=== PATIENT | female | born 1955 | race Caucasian/White ===

== ENCOUNTER → 2016-08-11 | Outpatient (CLI) | payer BC | END | disposition home or self-care (01) | LOC: C.LABSPEC 16:56 | PROVIDERS: ATTEND Nurse Practitioner Family | DX: R31.0 Gross hematuria (principal) ==

== ENCOUNTER → 2016-09-22 | Outpatient (CLI) | payer BC ==
--- NOTE | 2016-09-23 08:21 | MAMMOGRAPHY REPORT ---
BILATERAL DIGITAL SCREENING MAMMOGRAM TOMOSYNTHESIS WITH CAD: 09/22/2016 CLINICAL HISTORY: Routine screening. Patient has no complaints. TECHNIQUE: Breast tomosynthesis in addition to standard 2D mammography was performed. Current study was also evaluated with a Computer Aided Detection (CAD) system. COMPARISON: Comparison is made to exams dated: 09/19/2015 mammogram, 06/05/2014 mammogram, 06/02/2013 ma mmogram, 06/01/2012 mammogram, 05/25/2011 mammogram, and 05/20/2010 mammogram - [facility]. BREAST COMPOSITION: The tissue of both breasts is heterogeneously dense, which may obscure small mas ses. FINDINGS: There is a 6 mm nodular asymmetry in the lateral posterior right breast, best appreciated on the CC view and corresponding tomosynthesis images. Although this could represent normal overlapp ing tissue, additional spot compression tomosynthesis views, possibly including the exaggerated later al position, and possible ultrasound is recommended. No other new suspicious mass, architectural distortion or cluster of microcalcifications is seen bila terally. IMPRESSION: ACR BI-RADS CATEGORY 0: INCOMPLETE EVALUATION: NEED ADDITIONAL IMAGING EVALUATION The 6 mm nodular asymmetry in the lateral posterior right breast needs additional evaluation. The patient will be called to schedule an appointment. Approximately 10% of breast cancers are not detected with mammography. A negative mammographic report should not delay biopsy if a clinically suggestive mass is present. Eun Delgado M.D. ay/:09/22/2016 16:16:31 Supplier Quality Specialist: Sue MCMAHON)(Araceli), [facility] letter sent: Addl Imaging 0 BI-RADS Code: ACR BI-RADS Category 0: Incomplete Evaluation: Need Additional Imaging Evaluation
== END | disposition home or self-care (01) ==
LOC: C.MAMM 12:47
PROVIDERS: ATTEND Family Medicine
DX: Z12.31 Encounter for screening mammogram for malignant neoplasm of breast (principal); N64.89 Other specified disorders of breast

== ENCOUNTER → 2016-09-30 | Outpatient (CLI) | payer BC ==
--- NOTE | 2016-09-30 14:48 | MAMMOGRAPHY REPORT ---
UNILATERAL RIGHT DIGITAL DIAGNOSTIC MAMMOGRAM TOMOSYNTHESIS AND TARGETED RIGHT ULTRASOUND: 09/30/2016 CLINICAL HISTORY: Callback from screening mammogram for right breast asymmetry. TECHNIQUE: Breast tomosynthesis in addition to standard 2D mammography was performed. Spot compress ion right CC and MLO 2-D and tomosynthesis images and right X CCL 2-D and tomosynthesis images were o btained. COMPARISON: Comparison is made to exams dated: 09/22/2016 mammogram, 09/19/2015 mammogram, 06/05/2014 ma mmogram, 06/02/2013 mammogram, 06/01/2012 mammogram, and 05/25/2011 mammogram - [facility]. BREAST COMPOSITION: The tissue of the right breast is heterogeneously dense, which may obscure small masses. FINDINGS: The previously described asymmetry seen within the right lateral breast on the cc view eff aces on the additional views, and has the appearance of normal fibroglandular tissue on the additiona l tomosynthesis images. No suspicious masses, architectural distortion, or other suspicious finding is seen in this region on the additional views. Targeted ultrasound was performed of the right lateral breast in the region of the mammographic asymm etry. Sonographically normal tissue is noted, without evidence of a mass or other suspicious sonogra phic abnormality. IMPRESSION: ACR BI-RADS CATEGORY 2: BENIGN, TARGETED ULTRASOUND ACR BI-RADS CATEGORY 2: BENIGN The right breast asymmetry effaces on the additional views, without corresponding sonographic abnorma lity evident. The asymmetry is benign and compatible with normal fibroglandular tissue. There is no mammographic or targeted sonographic evidence of malignancy. A 1 year screening mammogram is recomme nded. The patient has been verbally notified of the results. Approximately 10% of breast cancers are not detected with mammography. A negative mammographic report should not delay biopsy if a clinically suggestive mass is present. Linda Fulton M.D. /:09/30/2016 09:22:02 Cloak Room Attendant: Rose DOUGLAS(Dori)(M), [facility] letter sent: Normal 1/2 BI-RADS Code: ACR BI-RADS Category 2: Benign Ultrasound BI-RADS: ACR BI-RADS Category 2: Benign
== END | disposition home or self-care (01) ==
LOC: C.MAMM 08:48
PROVIDERS: ATTEND Family Medicine
DX: R92.2 Inconclusive mammogram (principal); R92.8 Other abnormal and inconclusive findings on diagnostic imaging of breast

== ENCOUNTER → 2017-03-26 | Outpatient (CLI) | payer BC ==
--- NOTE | 2017-03-26 17:50 | DIAGNOSTIC IMAGING REPORT ---
ABD/PELVIS WITHOUT FOR STONE CLINICAL HISTORY: 61 years-old Female presenting with BLOOD IN URINE,FLANK PAIN. TECHNIQUE: Multidetector CT of the abdomen and pelvis was performed without the use of intravenous contrast. IV contrast: None. A dose lowering technique was used consistent with the principles of ALARA (as low as reasonably achievable). COMPARISON: Plain radiograph from 01/16/2016 and ultrasound of the kidneys from 12/26/2015. CT DOSE (mGy.cm): The estimated cumulative dose is 272.78 mGy.cm. FINDINGS: Technical Support Agent topogram: Multiple calcified uterine fibroids noted. Lung bases: Partially visualized solid fissural 3 mm nodule in the lingula (series 3 image 1). Solid triangular fissural 3 mm nodule in the anterior basal right lower lobe (series 3 image 26). Pleural-based solid 5 mm nodule at the posterior basal right lower lobe (series 3 image 42). Minimal dependent changes likely atelectasis. Normal heart size. No pericardial or pleural effusion. Liver: Normal morphology. Normal density. Biliary: No gross biliary ductal dilatation allowing for noncontrast technique. Normal gallbladder. Pancreas: Normal noncontrast appearance. Spleen: Normal noncontrast appearance. Adrenal glands: Normal noncontrast appearance. Kidneys and ureters: Normal noncontrast appearance. No nephrolithiasis. No hydronephrosis. Poorly visualized distal ureters. Small exophytic round hypodensity along the medial posterior aspect of the interpolar region of the left kidney likely a small cyst. Bladder: Normal. Pelvic organs: Multiple calcified uterine fibroids. Evaluation of the adnexa limited without contrast. Bowel: Moderate stool burden throughout normal caliber colon. No bowel obstruction. Peritoneal cavity: No free fluid or intraperitoneal gas. Lymph nodes: No gross lymphadenopathy allowing for noncontrast technique. Vasculature: Atherosclerosis of the normal caliber abdominal aorta. Abdominal wall: Small fat-containing umbilical hernia. Musculoskeletal: Normal. IMPRESSION: 1. No acute intra-abdominal pathology. No nephrolithiasis or bladder calculi. Evaluation of the ureters slightly limited secondary to the paucity of intra-abdominal fat, although the ureters are nondilated. 2. Multiple solid pulmonary nodules measuring up to 5 mm. Follow-up per Janett Society 2017 recommendations below. Please refer to below summary of Fleischner Society 2017 recommendations for follow-up of incidental CT nodules (Guilherme Pino et al. Guidelines for management of incidental pulmonary nodules detected on CT images: From the Fleischner Society 2017. Radiology 2017; 284: 228-243.) SOLID NODULES Single nodule; size < 6 mm * Low risk patients: No routine follow-up * High risk patients: Optional CT at 12 months Single nodule; size 6-8 mm * Low risk patients: CT at 6-12 months, then consider CT at 18-24 months * High risk patients: CT at 6-12 months, then at 18-24 months Single nodule; size > 8 mm * Either low or high risk patients: Considered CT at 3 months, PET/CT, or tissue sampling Multiple nodules; size < 6 mm * Low risk patients: No routine follow up * High risk patients: Optional CT at 12 months Multiple nodules; size 6-8 mm * Low risk patients: CT at 3-6 months, then consider CT at 18-24 months * High risk patients: CT at 3-6 months, then at 18-24 months Multiple nodules; size > 8 mm * Low risk patients: CT at 3-6 months, then consider at 18-24 months * High risk patients: CT at 3-6 months, then at 18-24 months Note: These guidelines apply to incidental nodules. These guidelines do not apply to patients younger than 35 years, immunocompromised patients, or patients with cancer. * Low risk patients: Minimal or absent history of smoking and/or other known risk factors * High risk patients: History of smoking, exposure to other carcinogens, emphysema, fibrosis, upper lobe location, family history of lung cancer, etc. * If a nodule up to 8 mm is partly solid or is ground glass, further follow-up is required after 24 months to exclude possible slow growing adenocarcinoma. SUBSOLID NODULES Single ground-glass nodule * Nodule size < 6 mm: No routine follow-up * Nodule size > or = 6 mm: CT at 6-12 months to confirm persistence, then CT every 2 years until 5 years Single part-solid nodule * Nodule size < 6 mm: No routine follow-up * Nodules size > or = 6 mm: CT at 3-6 months to confirm persistence. If unchanged and solid component remains < 6 mm, annual CT should be performed for 5 years Multiple nodules * Nodule size < 6 mm: CT at 3-6 months. If stable, consider CT at 2 and 4 years. * Nodules size > or = 6 mm: CT at 3-6 months. Subsequent management based on the most suspicious nodule(s) Electronically signed by: Juan Jose Lebron M.D. 03/26/2017 5:48 PM Dictated Date/Time: 03/26/2017 5:42 PM
== END | disposition home or self-care (01) ==
LOC: C.CTS 17:31
PROVIDERS: ATTEND Nurse Practitioner Family
DX: R31.0 Gross hematuria (principal); R10.32 Left lower quadrant pain; R91.8 Other nonspecific abnormal finding of lung field

== ENCOUNTER → 2017-03-30 | Outpatient (CLI) | payer BC ==
[2017-03-30 16:43] LABS: URINE APPEARANCE CLEAR (CLEAR); URINE BILIRUBIN NEG (NEG); URINE COLOR YELLOW; URINE EPITHELIAL CELL AUTO 0-5 /lpf (0-5); URINE NITRITE NEG (NEG); URINE PH 5.5 (4.5-7.5); URINE SPECIFIC GRAVITY 1.016 (1.000-1.030); UROBILINOGEN NEG (NEG)
[2017-03-30 16:50] LABS: MANUAL MICROSCOPIC REQUIRED? NO; REVIEW REQ? NO
[2017-03-30 17:00] LABS: ZZUR CULT IF INDIC CLEAN CATCH NO
[2017-03-30 17:23] LABS: URINE TOTAL PROTEIN < 5.0 mg/dl (0-11.9)
== END | disposition home or self-care (01) ==
LOC: C.LAB1850 15:03
PROVIDERS: ATTEND Internal Medicine Nephrology
DX: R31.0 Gross hematuria (principal)

== ENCOUNTER → 2017-06-14 | Outpatient (CLI) | payer OTHER | END | disposition home or self-care (01) | LOC: C.MAMM 08:57 | PROVIDERS: ATTEND Family Medicine | DX: M85.88 Other specified disorders of bone density and structure, other site (principal) ==

== ENCOUNTER 2021-11-24 16:59 | Inpatient (IN) ==
--- NOTE | 2021-11-24 17:18 | ED Triage Note ---
Date of Service November 24, 2021 History of Present Illness This patient was briefly evaluated while in triage. An abbreviated physical exam was performed. This patient is a 66-year-old Female with past medical history of Maze procedure and aortic valve replacement several months ago who presents to the ED for evaluation of worsening shortness of breath at rest, cough. She had a hard time laying flat last night and had to get up several times to walk around because of feeling short of breath. Has a history of fluid in the left lung. Stopped her lasix recently. No new leg edema Physical Exam CONSTITUTIONAL: in no acute distress RESPIRATORY: lung sounds diminshed on left. no crackles or rales CARDIAC: regular rate and normal rhythm. Trace pitting edema in b/l lower extremities Initial orders for labs and / or imaging were placed and patient was placed in the waiting area until a bed is available. Please see further documentation for the full ED course. MDM / Impression Impression Impression: SOB (shortness of breath), CHF (congestive heart failure), Pleural effusion, Elevated troponin : CHF (congestive heart failure) Qualifiers: Heart failure type: unspecified Heart failure chronicity: acute Qualified Code(s): I50.9 - Heart failure, unspecified
[2021-11-24] MEDS ORDERED: ALBUTEROL HFA 8 GM INHALER INH ONE (17:40)
--- NOTE | 2021-11-24 17:46 | Emergency Department Note ---
Impression & Plan SOB (shortness of breath), CHF (congestive heart failure), Pleural effusion, Elevated troponin ED Provider Note NAME: BETTY CRYSTAL AGE: 66 SEX: F : 1955 ARRIVES VIA: Walk-In INFORMANT: [Patient] ED PROVIDER(S): [Quirino Castaneda MD] CHIEF COMPLAINT: Shortness of breath HISTORY OF PRESENT ILLNESS: The patient is a 66-year-old female who had a mitral valve repair and Maze procedure October [address] [facility]. She did have some pleural fluid and required a chest tube. 2 weeks ago, she had a chest x-ray done showing some residual left-sided pleural effusion. The patient presents with about 2 days, maybe 3 days of some shortness of breath. She had a hard time sleeping last night, she had to get up and walk around to catch her breath. She feels okay walking, worse to sit down, worse to lie down. There has been a slight cough, the cough has been dry. She thought she heard herself wheeze at 1 point. No fever, no stuffy nose. No vomiting or diarrhea. 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 She has an appointment with the primary doctor's office tomorrow but was told to come to the ED today for an evaluation. REVIEW OF SYSTEMS: See HPI for pertinent positives and negatives. A total of ten systems were reviewed and were otherwise negative. PMHx/PSHx: See Below SOCIAL HISTORY: See Below. PHYSICAL EXAM: GENERAL: Patient is in no acute distress. HEENT: No acute trauma, normocephalic atraumatic, mucous membranes moist, no nasal congestion, no scleral icterus. NECK: No stridor, no adenopathy, no meningismus, trachea is midline. LUNGS: Diminished breath sounds at the left base. No wheezing or rhonchi. No respiratory distress. HEART: Without murmurs gallops or rubs, regular rate and rhythm. ABDOMEN: Soft, nontender, bowel sounds positive, no peritonitis. EXTREMITIES: No cyanosis or edema, full range of motion of all the joints without pain or difficulty, no signs for acute trauma. NEUROLOGIC: Oriented x 3, no acute motor or sensory deficits, no focal weakness. SKIN: No rash, no jaundice, no diaphoresis. DIFFERENTIAL DIAGNOSIS: Reactive airway disease, pneumonia, COVID-19, pleural effusion, pericardial effusion, pneumothorax, COPD, CHF, infection, cardiac ischemia, pulmonary embolism, bronchitis, musculoskeletal, gastrointestinal, as well as other pathologies. EMERGENCY DEPARTMENT COURSE/PROCEDURES: ECG: Indication was shortness of breath. ECG shows a normal sinus rhythm with some nonspecific ST change. The rate is 81. There is no ST elevation, no PVCs. The QTc is 457. No old ECGs available for comparison. Continuous Cardiac Monitoring: An order was placed for continuous cardiac monitoring. The monitor shows a rate of 80 with normal sinus rhythm. MEDICAL DECISION MAKING: There is no leukocytosis or concerning anemia. There was a normal platelet count. No renal failure or significant electrolyte abnormality. Alk phos was slightly elevated. The bilirubin was normal. ECG shows a normal sinus rhythm with some nonspecific ST change. No old ECGs available for comparison. Cardiac enzyme testing was slightly elevated. This troponin elevation could be secondary to cardiac injury/strain or potentially demand ischemia. BNP was elevated consistent with fluid overload. Chest x-ray shows some CHF with a fairly large left-sided pleural effusion. Patient appeared to be in a euthyroid state. COVID, influenza and RSV testing was negative. The patient presents with increasing shortness of breath. She has noticed the symptoms mostly when lying flat. I suspect the patient's dyspnea is from CHF coupled with the pleural effusion. She does admit that last week, her Lasix was stopped. I do think the patient would benefit from a hospital stay, diuresis and possible thoracentesis. Patient was given a dose of IV Lasix while here in the ED. She received albuterol via [facility]. I spoke with the patient at length, I talked to the ed case manager. The on-call hospitalist was consulted. Past Med/Surg History Medical History Pleural effusion Social History Smoking Status: Never smoker Feels Safe at Home: Yes Allergies Allergies Allergy/AdvReac Type Severity Reaction Status Date / Time ALLERGY2 Allergy Unknown Uncoded 09/19/15 13:18 Results & Data (ED) Vital Signs Vital Signs - 24 hr 11/24/21 17:06 11/24/21 17:13 11/24/21 17:00 Temperature 36.6 C Temperature Source Temporal Artery Scan Pulse Rate 80 77 Pulse Rate [Apical] Respiratory Rate 20 16 Respiratory Effort / Characteristics Non-Labored Respiratory Depth Normal Blood Pressure 128/81 Blood Pressure [Left Arm] Blood Pressure Mean 96 Blood Pressure Mean [Left Arm] Pulse Oximetry 96 97 Oxygen Delivery Method Room Air Room Air Room Air Sepsis Recent Fever Within 48 Hours No Sepsis New/Unexplained Change in Mental Status N/A Sepsis Action Taken by Nursing No Action Required 11/24/21 17:00 11/24/21 19:00 Temperature Temperature Source Pulse Rate Pulse Rate [Apical] 77 100 H Respiratory Rate 16 14 Respiratory Effort / Characteristics Respiratory Depth Blood Pressure Blood Pressure [Left Arm] 122/91 143/86 H Blood Pressure Mean Blood Pressure Mean [Left Arm] 101 105 Pulse Oximetry 98 98 Oxygen Delivery Method Room Air Sepsis Recent Fever Within 48 Hours Sepsis New/Unexplained Change in Mental Status Sepsis Action Taken by Long-Term Medications Current Medication List: was personally reviewed by me Laboratory Data Attestation: I reviewed the patient's lab results. Result diagrams: 11/24/21 17:30 11/24/21 17:30 Lab Results 11/24/21 11/24/21 11/24/21 Range/Units 17:30 17:30 17:30 WBC 7.10 (4.8-10.8) K/ul RBC 4.31 (3.93-5.22) M/uL Hgb 11.6 L (12.0-16.0) g/dl Hct 37.0 (34.1-44.9) % MCV 85.8 (80.0-100.0) fL MCH 26.9 (25.0-34.0) pg MCHC 31.4 L (32.0-36.0) g/dL RDW Std Deviation 42.9 (36.4-46.3) fL RDW Coeff of Fransisca 13.6 (11.5-14.5) % Plt Count 254 (130-400) K/uL MPV 9.8 (9.4-12.3) fL Immature Gran % (Auto) 0.3 % Neut % (Auto) 69.9 % Lymph % (Auto) 19.0 % [place] % (Auto) 7.3 % Eos % (Auto) 2.7 % Baso % (Auto) 0.8 % Neut # (Auto) 4.96 (1.4-6.5) K/uL Lymph # (Auto) 1.35 (1.2-3.4) K/uL [place] # (Auto) 0.52 (0.24-0.82) K/uL Eos # (Auto) 0.19 (0-0.50) K/uL Baso # (Auto) 0.06 (0-0.2) K/uL Immature Gran # (Auto) 0.02 (0.00-0.02) K/uL Sodium 139 (136-145) mmol/L Potassium 3.8 (3.5-5.1) mmol/L Chloride 104 (98-107) mmol/L Carbon Dioxide 29 (21-32) mmol/L Anion Gap 6 (3-11) BUN 18 (6-23) mg/dl Creatinine 0.69 (0.6-1.2) mg/dl Est Cr Clr Drug Dosing 64.5 ml/min Est GFR ( Amer) 105.9 ml/min Est GFR (Non-Af Amer) 91.4 ml/min BUN/Creatinine Ratio 26.1 H (10-20) Glucose 98 (70-99(Fasting)) mg/dl Calcium 9.4 (8.5-10.1) mg/dl Magnesium 2.2 (1.7-2.4) mg/dl Total Bilirubin 0.6 (0.2-1.0) mg/dl AST 25 (13-39) U/L ALT 19 (7-52) U/L Alkaline Phosphatase 115 H (34-104) U/L Troponin I High Sens 24.7 H (0-14) pg/ml B-Natriuretic Peptide (0-100) pg/ml Total Protein 6.6 (6.0-8.3) gm/dl Albumin 4.0 (3.4-5.0) gm/dl Globulin 2.6 (2.5-4.0) gm/dl Albumin/Globulin Ratio 1.5 (0.9-2) TSH 1.610 (0.300-4.500) uIu/ml SARS-CoV-2 (PCR) (Negative) Influenza Type A (PCR) (Neg) Influenza Type B (PCR) (Neg) RSV (RT-PCR) (Neg) 11/24/21 11/24/21 Range/Units 17:44 17:55 WBC (4.8-10.8) K/ul RBC (3.93-5.22) M/uL Hgb (12.0-16.0) g/dl Hct (34.1-44.9) % MCV (80.0-100.0) fL MCH (25.0-34.0) pg MCHC (32.0-36.0) g/dL RDW Std Deviation (36.4-46.3) fL RDW Coeff of Fransisca (11.5-14.5) % Plt Count (130-400) K/uL MPV (9.4-12.3) fL Immature Gran % (Auto) % Neut % (Auto) % Lymph % (Auto) % [place] % (Auto) % Eos % (Auto) % Baso % (Auto) % Neut # (Auto) (1.4-6.5) K/uL Lymph # (Auto) (1.2-3.4) K/uL [place] # (Auto) (0.24-0.82) K/uL Eos # (Auto) (0-0.50) K/uL Baso # (Auto) (0-0.2) K/uL Immature Gran # (Auto) (0.00-0.02) K/uL Sodium (136-145) mmol/L Potassium (3.5-5.1) mmol/L Chloride (98-107) mmol/L Carbon Dioxide (21-32) mmol/L Anion Gap (3-11) BUN (6-23) mg/dl Creatinine (0.6-1.2) mg/dl Est Cr Clr Drug Dosing ml/min Est GFR ( Amer) ml/min Est GFR (Non-Af Amer) ml/min BUN/Creatinine Ratio (10-20) Glucose (70-99(Fasting)) mg/dl Calcium (8.5-10.1) mg/dl Magnesium (1.7-2.4) mg/dl Total Bilirubin (0.2-1.0) mg/dl AST (13-39) U/L ALT (7-52) U/L Alkaline Phosphatase (34-104) U/L Troponin I High Sens (0-14) pg/ml B-Natriuretic Peptide 108 H (0-100) pg/ml Total Protein (6.0-8.3) gm/dl Albumin (3.4-5.0) gm/dl Globulin (2.5-4.0) gm/dl Albumin/Globulin Ratio (0.9-2) TSH (0.300-4.500) uIu/ml SARS-CoV-2 (PCR) NEGATIVE (Negative) Influenza Type A (PCR) Negative (Neg) Influenza Type B (PCR) Negative (Neg) RSV (RT-PCR) Negative (Neg) Administered Medications Discontinued Medications Albuterol (Albuterol Hfa 8 Gm Inhaler) 2 puffs INH NOW ONE Stop: 11/24/21 17:41 Last Admin: 11/24/21 17:52 Dose: 2 puffs Documented By: MARVIN Furosemide (Furosemide 40 Mg/4 Ml Vial) 40 mg IV ONE ONE Stop: 11/24/21 18:54 Last Admin: 11/24/21 19:17 Dose: 40 mg Documented By: JACOB Imaging Data Radiologist's Impression: Chest X-Ray 11/24/21 17:13 XR chest 1V portable CLINICAL HISTORY: Orthopnea, hx fluid on L. Lungs diminished on L COMPARISON STUDY: Chest radiograph November 11, 2021. FINDINGS: Cardiomegaly is noted. There are median sternotomy wires, prosthetic cardiac valve and a left atrial appendage occluder device. Moderate to large left and small right pleural effusions are again noted. There is no pneumothorax . There is mild pulmonary edema. IMPRESSION: 1. Moderate to large left and small right pleural effusions. No pneumothorax. 2. Cardiomegaly with mild interstitial pulmonary edema. ACT 112: Negative or not required by law. Electronically signed by: Donnell Ruiz M.D. 11/24/2021 6:13 PM Discharge Plan Visit Data Chief Complaint: Shortness of Breath/Dyspnea Stated Complaint: SOB, HEART SURGERY, REF BY ED Provider: Quirino Castaneda Discharge Problem: SOB (shortness of breath), CHF (congestive heart failure), Pleural effusion, Elevated troponin Patient Disposition: Admitted As Inpatient Condition: Fair Forms Stand Alone Forms: [facility] Referrals Referrals: Cristiana Morrison MD [Primary Care Provider] -
[2021-11-24 17:50] LABS: Basophils # (auto) 0.06 K/uL (0-0.2); Basophils % (auto) 0.8 %; Eosinophils # (auto) 0.19 K/uL (0-0.50); Eosinophils % (auto) 2.7 %; Hemoglobin 11.6 g/dl (12.0-16.0); Immature Granulocytes # (auto) 0.02 K/uL (0.00-0.02); Immature Granulocytes % (auto) 0.3 %; Lymphocytes # (auto) 1.35 K/uL (1.2-3.4); Mean Corpuscular Hemoglobin 26.9 pg (25.0-34.0); Mean Corpuscular Hgb Conc 31.4 g/dL (32.0-36.0); Mean Corpuscular Volume 85.8 fL (80.0-100.0); Mean Platelet Volume 9.8 fL (9.4-12.3); Monocytes # (auto) 0.52 K/uL (0.24-0.82); Monocytes % (auto) 7.3 %; Neutrophils # (auto) 4.96 K/uL (1.4-6.5); Neutrophils % (auto) 69.9 %; Platelet Count 254 K/uL (130-400); RDW Coefficient of Variation 13.6 % (11.5-14.5); RDW Standard Deviation 42.9 fL (36.4-46.3); Red Blood Count 4.31 M/uL (3.93-5.22)
[2021-11-24 18:13] LABS: Albumin Globulin Ratio 1.5 (0.9-2); BUN Creatinine Ratio 26.1 (10-20); Bilirubin,Total 0.6 mg/dl (0.2-1.0); Calcium 9.4 mg/dl (8.5-10.1); Creatinine Clr Calc Pharmacy 64.5 ml/min; Est GFR (African American) 105.9 ml/min; Est GFR (Non-African American) 91.4 ml/min; Globulin 2.6 gm/dl (2.5-4.0); Magnesium 2.2 mg/dl (1.7-2.4); Potassium 3.8 mmol/L (3.5-5.1); Total Protein 6.6 gm/dl (6.0-8.3)
--- NOTE | 2021-11-24 18:15 | XRay Report ---
XR chest 1V portable CLINICAL HISTORY: Orthopnea, hx fluid on L. Lungs diminished on L COMPARISON STUDY: Chest radiograph November 11, 2021. FINDINGS: Cardiomegaly is noted. There are median sternotomy wires, prosthetic cardiac valve and a le ft atrial appendage occluder device. Moderate to large left and small right pleural effusions are aga in noted. There is no pneumothorax. There is mild pulmonary edema. IMPRESSION: 1. Moderate to large left and small right pleural effusions. No pneumothorax. 2. Cardiomegaly with mild interstitial pulmonary edema. ACT 112: Negative or not required by law. Electronically signed by: Donnell Ruiz M.D. 11/24/2021 6:13 PM
[2021-11-24 18:17] LABS: Troponin I High Sensitivity 24.7 pg/ml (0-14)
[2021-11-24] MEDS ORDERED: FUROSEMIDE 40 MG/4 ML VIAL IV ONE (18:53)
[2021-11-24 18:57] LABS: Influenza A virus by PCR Negative (Neg); Influenza B virus by PCR Negative (Neg); RSV by PCR Negative (Neg); SARS CoV2 RNA(COVID-19) InHosp NEGATIVE (Negative)
--- NOTE | 2021-11-24 19:57 | History & Physical Report ---
Date of Service November 24, 2021 Assessment & Plan (1) SOB (shortness of breath): Plan: 66 yo F with PMH PAF s/p ablation and mitral valve repair on 10/24/21, GERD, osteopenia presenting with progressive dyspnea. Acute respiratory failure -Admission CXR with mild interstitial pulmonary edema b/l, small pleural effusions b/l -BNP minimally elevated to 108 on admission -Most recent echocardiogram per [facility] records in 08/2021- EF > 70% with severe LA dilation, severe MR -Echocardiogram ordered for AM in wake of recent valve surgery for baseline assessment of repair and RV/LV function -Given pt's exam findings and labs/imaging thus far, I suspect her dyspnea is likely due to residual pleural effusions/mild pulmonary edema from her recent mitral valve repair rather than true CHF exacerbation -Diuresis regimen -Dry weight reportedly 108 lbs, pt 110 lbs on admission -Continue Lasix 20 mg IV daily, transition to PO pending clinical course -Continue KCl 20 meq while on diuresis -Cr 0.69 on admission -Currently saturating well on RA -Strict I's and O's, daily weights -Trend BMP History of atrial fibrillation s/p mitral valve repair and ablation -Sinus rhythm on admission, pt has reportedly been in sinus rhythm since the surgery in 10/2021 -No electrolyte abnormalities on admission, Mg wnl -Continue Eliquis 5 mg BID, pt apparently to be on Eliquis for 3 months -Continue telemetry Elevated troponin -Admission troponin HS 25 -EKG on admission unremarkable, no evidence of acute ischemia/infarct -Pt denying any ACS symptoms -Repeat troponin pending, suspect this is likely due to mild demand ischemia GERD -Continue pantoprazole 40 mg PO daily FENGI: Low salt, fluid restriction 1200 mls Code status: Full DVT ppx: SCDs, ambulation Isolation: None Dispo: Telemetry (2) Elevated troponin: (3) CHF (congestive heart failure): (4) Pleural effusion: History of Present Illness Chief Complaint: Shortness of breath Primary Care Provider: Cristiana Morrison MD 66 yo F with PMH PAF s/p ablation and mitral valve repair on 10/24/21, postoperative L pleural effusion requiring thoracostomy drainage, GERD, osteopenia presenting with progressive dyspnea. 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 On 11/21, pt noticed. Dyspnea slowly progressed over past few days- would mainly occur when pt was laying flat and also on exertion. She also notes feeling more bloated with reduced appetite. Has been sleeping in upright, reclined position due to dyspnea when laying in bed. 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 Quinones this AM, who advised seeing PCP. Pt called PCP office and was advised to come to ER for evaluation. She denies any leg swelling, fever, chills, chest pain, abdominal pain. She denies any change in weight over past few days, has remained around her baseline weight of 108 lbs. In ED, pt noted to have unremarkable EKG. Was hemodynamically stable. CBC, BMP, BNP unremarkable. Troponin HS 25. CXR with b/l pleural effusions and mild interstitial pulmonary edema b/l. Pt given albuterol MDI and Lasix 40 mg IV in ER. Allergies Allergy/AdvReac Type Severity Reaction Status Date / Time adhesive Allergy Rash Verified 11/24/21 21:14 latex Allergy Rash Verified 11/24/21 21:14 Home Medications Medication Instructions Recorded Confirmed Type apixaban 5 mg tablet (Eliquis) 5 mg PO BID 11/24/21 11/24/21 History aspirin 81 mg chewable tablet 81 mg PO DAILY 11/24/21 11/24/21 History calcium-vitamin D3-vitamin K 500 1 tab PO DAILY 11/24/21 11/24/21 History mg-100 unit-40 mcg chewable tablet multivit with 1 tab PO DAILY 11/24/21 11/24/21 History amdepmum-yrzy-RN-lutein 8 mg iron-400 mcg-300 mcg tablet (Centrum Silver Women) sjkzapmc-ugzyyusx-lyc C 250 1 tab PO DAILY 11/24/21 11/24/21 History mg-herbal no.124 11.66 mg chewable tablet (Airborne Gummy) pantoprazole 20 mg tablet,delayed 20 mg PO DAILY 11/24/21 11/24/21 History release polyethylene glycol 3350 17 gram 0 g PO DAILY 11/24/21 11/24/21 History oral powder packet (Miralax) psyllium husk 3.4 gram/5.4 gram 0.5 tbsp PO 3XWK 11/24/21 11/24/21 History oral powder (Metamucil) Past Med/Surg History Medical History Pleural effusion Social History Smoking Status: Never smoker Second Hand Exposure: Yes (IN THE PAST); Do You Dip or Chew Tobacco: No; Tobacco Cessation Education Requested by Patient: No Hx Alcohol Use: No Hx Substance Use: No Preferred Language: Nauruan Communication Ability: Effective Pallet 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 Required: No Beliefs That Will Affect Care: None Current Living Situation: Family Current Living Situation Comment: LIVES WITH TWIN SISTER Other Information That Helps Us Care for You: No Feels Safe at Home: Yes Safety Concerns: Feels Safe At This Time Assistive Devices: None Review of Systems Review of Systems: Per HPI Physical Exam Physical Exam: General: well-appearing, thin, no acute distress HEENT: moist mucous membranes, no JVD b/l CV: RRR, normal S1 and S2, no murmurs noted Resp: largely clear with faint bibasilar crackles, good inspiratory effort, no increased work of breathing, no wheezes Abd: soft, nontender, nondistended, no rebound or guarding Neuro: grossly alert and oriented, no focal motor or sensory deficits Skin: no rashes, warm and dry Extremities: no peripheral edema b/l, distal LE pulses 2+ b/l Results & Data Results & Data ([facility]) Vital Signs (Past 12 Hours) Vital Signs Temp Pulse Pulse Resp BP BP Pulse Ox 11/24/21 19:00 100 H 14 143/86 H 98 11/24/21 17:00 77 16 122/91 98 11/24/21 17:00 11/24/21 17:13 77 16 97 11/24/21 17:06 36.6 C 80 20 128/81 96 O2 Del Method 11/24/21 19:00 Room Air 11/24/21 17:00 11/24/21 17:00 Room Air 11/24/21 17:13 Room Air 11/24/21 17:06 Room Air Supervising Physician Co-Signing Physician Notes Attending addendum: I have physically seen this patient, have supervised the medical residents activities, and agree with the H&P unless as otherwise noted. Assessment and Plan: Acute respiratory failure with hypoxia/moderate to large left pleural effusion/small right pleural effusion/pulmonary edema- Echo on 08/31 with EF 70% and severe MR Lasix 40 mg IV as noted in the ED with potassium supplementation Will likely need thoracentesis on the left Atrial fibrillation/status post mitral valve repair and ablation/elevated troponin The patient will be admitted to telemetry for serial cardiac enzymes, serial EKG's, cardiac rhythm monitoring and a 2-D echocardiogram with Dopplers. Continue Eliquis Likely supply demand mismatch If Trop increases consult cardiology GERD- Continue pantoprazole Remaining orders and notations as noted Resident Activity Tracking Resident Involvement: Resident Care Provided Care Provided: Adult Hospital Medicine (1) CHF (congestive heart failure) Heart failure chronicity: acute Heart failure type: unspecified Qualified Code(s): I50.9 - Heart failure, unspecified
[2021-11-24] MEDS ORDERED: ASPIRIN 81 MG ECTAB PO STA (22:34)
[2021-11-24] MEDS ORDERED: POLYETHYLENE (MIRALAX) 17 GM PACK PO PRN (22:34)
[2021-11-24] MEDS ORDERED: ACETAMINOPHEN 325 MG TAB PO PRN (22:34)
[2021-11-24] MEDS ORDERED: ONDANSETRON INJ 2 MG/ML 2 ML VIAL IV PRN (22:34)
[2021-11-25] MEDS: APIXABAN 5 MG TABLET PO SCH ×2 (00:10→08:37)
[2021-11-25] MEDS: PANTOprazole 40 MG TAB PO SCH ×2 (00:22→08:37)
[2021-11-25] MEDS: POTASSIUM CHLORIDE CRTAB 20 MEQ TABCR PO SCH (08:37)
[2021-11-25] MEDS ORDERED: FUROSEMIDE INJ 20 MG/2 ML VIAL IV SCH (09:00)
[2021-11-25 09:11] LABS: BUN Creatinine Ratio 20.6 (10-20); Calcium 9.5 mg/dl (8.5-10.1); Creatinine Clr Calc Pharmacy 63.2 ml/min; Est GFR (African American) 106.4 ml/min; Est GFR (Non-African American) 91.8 ml/min; Magnesium 2.1 mg/dl (1.7-2.4); Potassium 4.2 mmol/L (3.5-5.1)
--- NOTE | 2021-11-25 13:43 | XCELERA ---
[id number]
--- NOTE | 2021-11-25 14:43 | Electrocardiogram Report ---
Test Reason : Blood Pressure : / mmHG Vent. Rate : 081 BPM Atrial Rate : 081 BPM P-R Int : 160 ms QRS Dur : 092 ms QT Int : 394 ms P-R-T Axes : 043 035 057 degrees QTc Int : 457 ms Normal sinus rhythm Nonspecific T wave abnormality Abnormal ECG No previous ECGs available Confirmed by Osvaldo Roberts ([id number]) on 11/25/2021 2:43:02 PM Referred By: Cristiana Morrison Confirmed By:Osvaldo Roberts
--- NOTE | 2021-11-25 14:47 | Pulmonary Consultation ---
Date of Consultation November 25, 2021 Assessment & Plan (1) SOB (shortness of breath): Secondary to the large left pleural effusion and CHF. Continue diuretics. (2) Pleural effusion: We will proceed with diagnostic and therapeutic thoracentesis after anticoagulation has been held for 3-4 doses. Likely pleural effusion is secondary to recent cardiac surgery. Patient agreeable to undergoing a thoracentesis. We will tentatively plan for this to be done as an outpatient on . Will contact my office staff to have her scheduled as an outpatient thoracentesis on . History of Present Illness Reason for Consultation: 66-year-old female with a past medical history of paroxysmal atrial fibrillation presenting with shortness of breath Attending Physician: Scott Markham History of Present Illness 66-year-old female with a history of recent mitral valve repair October 24 and maze procedure presenting to the hospital due to increasing shortness of breath. On x-ray she was found to have moderate to large size left pleural effusion. She was given IV Lasix yesterday and today with some improvement of symptoms. She continues to have shortness of breath with exertion. Minimal chest pain. No significant white count seen. She is on Eliquis for A. fib. She received a dose this morning. She denies any fevers, chills or night sweats. Appetite is okay. She did have some orthopnea over the last couple days which has improved. She is eager to be able to walk around her home and not have shortness of breath. Allergies Allergy/AdvReac Type Severity Reaction Status Date / Time adhesive Allergy Rash Verified 11/24/21 21:14 latex Allergy Rash Verified 11/24/21 21:14 Home Medications Medication Instructions Recorded Confirmed Type apixaban 5 mg tablet (Eliquis) 5 mg PO BID 11/24/21 11/24/21 History aspirin 81 mg chewable tablet 81 mg PO DAILY 11/24/21 11/24/21 History calcium-vitamin D3-vitamin K 500 1 tab PO DAILY 11/24/21 11/24/21 History mg-100 unit-40 mcg chewable tablet multivit with 1 tab PO DAILY 11/24/21 11/24/21 History fmpotxqi-dfxw-MZ-lutein 8 mg iron-400 mcg-300 mcg tablet (Centrum Silver Women) rlxprjwa-zuiwfqgo-riz C 250 1 tab PO DAILY 11/24/21 11/24/21 History mg-herbal no.124 11.66 mg chewable tablet (Airborne Gummy) pantoprazole 20 mg tablet,delayed 20 mg PO DAILY 11/24/21 11/24/21 History release polyethylene glycol 3350 17 gram 0 g PO DAILY 11/24/21 11/24/21 History oral powder packet (Miralax) psyllium husk 3.4 gram/5.4 gram 0.5 tbsp PO 3XWK 11/24/21 11/24/21 History oral powder (Metamucil) Patient History Medical History Pleural effusion Social History Smoking Status: Never smoker Second Hand Exposure: Yes (IN THE PAST); Do You Dip or Chew Tobacco: No; Tobacco Cessation Education Requested by Patient: No Hx Alcohol Use: No Hx Substance Use: No Preferred Language: Togolese Communication Ability: Effective Correctional Program Officer Required: No Beliefs That Will Affect Care: None Current Living Situation: Family Current Living Situation Comment: LIVES WITH TWIN SISTER Other Information That Helps Us Care for You: No Feels Safe at Home: Yes Safety Concerns: Feels Safe At This Time Assistive Devices: None Review of Systems Review of Systems: All systems reviewed & are unremarkable except as noted in HPI & below Physical Exam Physical Exam: Constitutional: Thin appearing female no apparent distress. Sitting up in bed. Eyes: Pupils are equal round and reactive to light. Conjunctivae are normal. Anicteric sclera. Ears nose, mouth and throat: Deferred. Neck: Trachea is midline. Visual inspection is normal. Respiratory: Diminished at the left lung base. No significant tachypnea. No wheezes. Cardiovascular: Regular rate and rhythm. No murmurs. No edema. Gastrointestinal: Normal bowel sounds, soft, nontender and nondistended. No hepatosplenomegaly noted. Musculoskeletal: No cyanosis. Patient is able to move all extremities. Skin: No rashes, warm dry and intact. Neurologic: No obvious focal neurological deficits seen. Psychiatric: Alert and oriented x3 with a euthymic affect. Results & Data Results & Data ([facility]) Vital Signs (Past 12 Hours) Vital Signs Temp Pulse Pulse Resp BP Pulse Ox O2 Del Method 11/25/21 11:34 36.6 C 87 18 106/73 97 Room Air 11/25/21 07:13 Room Air 11/25/21 07:42 36.7 C 78 19 129/82 97 Room Air 11/25/21 07:30 75 11/25/21 03:48 36.7 C 72 18 102/69 95 Room Air PG Care Time/CCT Total # of Minutes Spent Total Time Spent with Patient: Total time spent is greater than 50% in coordination of care (as documented) at patient's floor/unit and/or counseling patient: Coding Level of Care Code 65278 Initial Inpt Care Lvl 3 Diagnoses SOB (shortness of breath) R06.02 Pleural effusion J90
[2021-11-25 16:22] LABS: INR 1.1 (0.9-1.1); Prothrombin Time 11.6 Seconds (9.0-12.0)
--- NOTE | 2021-11-25 18:22 | XRay Report ---
KUB HISTORY: Acute generalized abdominal pain abd fullness COMPARISON: Chest radiograph of same day, KUB 01/16/2016, CT abdomen and pelvis 03/26/2017 FINDINGS: Nonobstructive bowel gas pattern with moderate fecal retention. Calcified uterine fibroids redemonstrated measuring up to 7.5 cm. No renal calculi. No ureteral calculi. No pneumoperitoneum or pneumatosis. No fracture. Moderate to large left pleural effusion with left basilar consolidation. C ardiomegaly with pulmonary vascular congestion. IMPRESSION: 1. Nonobstructive bowel gas pattern. 2. Moderate fecal retention. 3. Moderate to large left pleural effusion with left basilar consolidation. 4. Fibroid uterus. ACT 112: Negative or not required by law. The above report was generated using voice recognition software. It may contain grammatical, syntax o r spelling errors. Electronically signed by: Gary Nelson M.D. 11/25/2021 6:21 PM
--- NOTE | 2021-11-25 20:09 | Hospitalist Progress Note ---
Date of Service November 25, 2021 Assessment & Plan (1) Acute diastolic CHF (congestive heart failure): Plan: improved volume status. echo today - EF 60-65%, normal mitral valve function; grade 2 diastolic dysfunction. Small pericardial effusion. s/p IV lasix yesterday and again this am. improved symptoms. weight 106# - at baseline. cxr today - no further pulmonary edema, but large pleural effusion on left - see below. repeat BMP in am for stability; may need 1 more dose of IV tomorrow morning but await morning labs. (2) Pleural effusion: Plan: left. likely due to recent cardiac surgery. worse since 11/11/21 cxr. I believe the effusion is the main reason for ongoing dyspnea and pulmonary symptoms. Pulmonary consulted; earliest thoracentesis can be performed is . Eliquis needs to be held prior - thus, hold such starting now. (3) Elevated troponin: Plan: 2nd to myocardial demand ischemia in setting of #1. no ACS. (4) Abdominal fullness: Plan: 2nd constipation? kub x-ray with copious stool. miralax x 2 doses tonight, then bowel maintenance thereafter. (5) DVT prophylaxis: Plan: place Eliquis on hold in preparation for left-sided thoracentesis (6) Atrial fibrillation: Plan: had been chronic/permanent, then s/p MAZE procedure mid-October at the [facility]. NSR since then. NSR here. see above re: eliquis. (7) S/P Maze operation for atrial fibrillation: Plan: October 2021 at [facility]. Incision well-healed. No symptoms of mediastinitis, etc. (8) S/P mitral valve repair: Plan: for severe MR. performed at [facility] - October 2021. MV function is normal on today's echo. Plan appreciate Dr Townsend's consultation observe overnight in light of ongoing dyspnea and GI issues Admission and Anticipated Discharge Date Admission Date: November 24, 2021 Subjective patient states her dyspnea and QUINONES are improved however, with excessive activity, she does have QUINONES which takes a while to resolve itself she feels like she "can't take a deep breath" mild cough but this has improved w/ diuresis this am with breakfast she felt very "full" after consuming just a few bites then had dyspnea following breakfast lunch/ dinner went well, however, and appetite was good last BM - this am - formed, small tele overnight - NSR Review of Systems Review of Systems: gen - no fever cv - no pleuritic cp, no central cp pulm - cough, nonproductive; dyspnea mainly with exertion GI - abd fullness and bloating; no vomiting Physical Exam Physical Exam: gen - thin, NAD neck - no JVD mouth - MMM heart - RRR, s1 s2, no murmur lungs - CTA on right; decreased BS 1/2 [address] up back, no rales b/l, no wheeze b/l abd - slightly distended, BS+, NT, no HSM ext - no edema, pulses 2+ b/l psych - a/o x 3 skin - mid sternal vertical incision well-healed, no drainage, no redness Results & Data Results & Data ([facility]) Vital Signs (Past 12 Hours) Vital Signs Temp Pulse Pulse Resp BP Pulse Ox O2 Del Method 11/25/21 19:30 36.5 C 86 18 111/76 97 Room Air 11/25/21 17:10 81 11/25/21 15:23 36.8 C 83 16 110/72 96 Room Air 11/25/21 11:34 36.6 C 87 18 106/73 97 Room Air Laboratory Results Laboratory Results - last 24 hr 11/24/21 11/25/21 11/25/21 22:00 08:26 15:41 PT 11.6 INR 1.1 Sodium 139 Potassium 4.2 Chloride 103 Carbon Dioxide 29 Anion Gap 7 BUN 14 Creatinine 0.68 Est Cr Clr Drug Dosing 63.2 Est GFR ( Amer) 106.4 Est GFR (Non-Af Amer) 91.8 BUN/Creatinine Ratio 20.6 H Glucose 132 H Calcium 9.5 Magnesium 2.1 Troponin I High Sens 22.9 H PG Care Time/CCT Total # of Minutes Spent Total Time Spent with Patient: Total time spent is greater than 50% in coordination of care (as documented) at patient's floor/unit and/or counseling patient: Coding Level of Care Code 26969 Subseq Hosp Care Lvl 3 Diagnoses Acute diastolic CHF (congestive heart failure) I50.31 Pleural effusion J90 Elevated troponin R77.8 Abdominal fullness R19.8 DVT prophylaxis Z29.9 Atrial fibrillation I48.91 S/P Maze operation for atrial fibrillation Z98.890; Z86.79 S/P mitral valve repair Z98.890
[2021-11-25] MEDS: POLYETHYLENE (MIRALAX) 17 GM PACK PO SCH ×2 (20:10→23:43)
--- NOTE | 2021-11-25 22:23 | Billing Data ---
Date of Service November 25, 2021 Coding Level of Care Code 88746 Initial Inpt Care Lvl 3
[2021-11-26 08:12] LABS: BUN Creatinine Ratio 27.5 (10-20); Calcium 9.5 mg/dl (8.5-10.1); Creatinine Clr Calc Pharmacy 61.1 ml/min; Est GFR (African American) 105.9 ml/min; Est GFR (Non-African American) 91.4 ml/min; Magnesium 2.1 mg/dl (1.7-2.4); Potassium 4.1 mmol/L (3.5-5.1)
[2021-11-26] MEDS: POTASSIUM CHLORIDE CRTAB 20 MEQ TABCR PO SCH (08:55)
[2021-11-26] MEDS: PANTOprazole 40 MG TAB PO SCH (08:56)
[2021-11-26] MEDS ORDERED: FUROSEMIDE INJ 20 MG/2 ML VIAL IV ONE (09:02)
--- NOTE | 2021-12-02 09:26 | Discharge Summary ---
Date of Service date of admission - November 24, 2021 date of discharge - November 26, 2021 Admission HPI Per Admitting Provider 66 yo F with PMH PAF s/p ablation and mitral valve repair on 10/24/21, postoperative L pleural effusion requiring thoracostomy drainage, GERD, osteopenia presenting with progressive dyspnea. Pt had been on Lasix 60 mg after surgery and until last week, when it was stopped by her faculty neuropsychologist and reduced to 20 mg daily. On 11/21, pt noticed. Dyspnea slowly progressed over past few days- would mainly occur when pt was laying flat and also on exertion. She also notes feeling more bloated with reduced appetite. Has been sleeping in upright, reclined position due to dyspnea when laying in bed. Pt sent message to her faculty neuropsychologist Dr. Quinones this AM, who advised seeing PCP. Pt called PCP office and was advised to come to ER for evaluation. She denies any leg swelling, fever, chills, chest pain, abdominal pain. She denies any change in weight over past few days, has remained around her baseline weight of 108 lbs. In ED, pt noted to have unremarkable EKG. Was hemodynamically stable. CBC, BMP, BNP unremarkable. Troponin HS 25. CXR with b/l pleural effusions and mild interstitial pulmonary edema b/l. Pt given albuterol MDI and Lasix 40 mg IV in ER. Discharge Exam gen - thin, NAD neck - no JVD mouth - MMM heart - RRR, s1 s2, no murmur lungs - CTA on right; decreased BS 1/2 way up back, no rales b/l, no wheeze b/l abd - slightly distended, BS+, NT, no HSM ext - no edema, pulses 2+ b/l psych - a/o x 3 skin - mid sternal vertical incision well-healed, no drainage, no redness Discharge Data Allergies Allergy/AdvReac Type Severity Reaction Status Date / Time adhesive Allergy Rash Verified 11/24/21 21:14 latex Allergy Rash Verified 11/24/21 21:14 Consultations 11/24/21 19:00 ED Decision to Admit Stat Hospital Course (1) Acute diastolic CHF (congestive heart failure): improved volume status. echo today - EF 60-65%, normal mitral valve function; grade 2 diastolic dysfunction. Small pericardial effusion. s/p IV lasix yesterday and again this am. improved symptoms. weight 106# - at baseline. cxr today - no further pulmonary edema, but large pleural effusion on left - see below. repeat BMP in am for stability; may need 1 more dose of IV tomorrow morning but await morning labs. (2) Pleural effusion: left. likely due to recent cardiac surgery. worse since 11/11/21 cxr. I believe the effusion is the main reason for ongoing dyspnea and pulmonary symptoms. Pulmonary consulted; earliest thoracentesis can be performed is . Eliquis needs to be held prior - thus, hold such starting now. (3) Elevated troponin: 2nd to myocardial demand ischemia in setting of #1. no ACS. (4) Abdominal fullness: 2nd constipation? kub x-ray with copious stool. miralax x 2 doses tonight, then bowel maintenance thereafter. (5) DVT prophylaxis: place Eliquis on hold in preparation for left-sided thoracentesis (6) Atrial fibrillation: had been chronic/permanent, then s/p MAZE procedure mid-October at the [facility]. NSR since then. NSR here. see above re: eliquis. (7) S/P Maze operation for atrial fibrillation: October 2021 at [facility]. Incision well-healed. No symptoms of mediastinitis, etc. (8) S/P mitral valve repair: for severe MR. performed at [facility] - October 2021. MV function is normal on today's echo. Plan appreciate Dr Townsend's consultation observe overnight in light of ongoing dyspnea and GI issues Discharge Plan Discharge Items Patient Disposition: Home - Self-Care Reason For Visit: CHF EXACERBATION Discharge Diagnosis: 1. acute pulmonary edema (fluid build-up in the lungs) - improved with IV diuretics 2. left-sided pleural effusion - likely due to recent heart surgery - Dr Townsend from [facility] to perform thoracentesis (removal of fluid with needle) 3. recent MAZE procedure 4. recent mitral valve repair; echocardiogram here shows good mitral valve function 5. history of a.fib -- none seen on monitoring while here Activity: As commented below Activity Comment: short/light walks only until thoracentesis procedure is completed Lifting: No more than 10 pounds Exercise/Sports: Wait until after follow-up appointment Non-emergency contact: Primary Care Provider, [employer] Call non-emergency contact if: you have any medication questions, your symptoms worsen, your pain is not controlled, your pain is worsening, your pain is unusual for you, your pain is concerning for you and you have a fever Follow-up/Referrals: Joe Townsend MD [Physician] - 11/27/21 (thoracentesis procedure on ) Goran Quinones DO [Physician] - 11/28/21 (see Dr Quinones as scheduled ) Cristiana Morrison MD [Primary Care Provider] - (see Dr Morrison in 1-2 weeks) Diet: Heart Healthy Fluids: 1500ml (6 cups) Addtl Attending Provider Instructions: Ms Ryan, You were hospitalized for worsening shortness of breath. This was due to fluid build-up in the lungs ("pulmonary edema") as well as the development of a pocket of fluid in the left chest cavity called a "pleural effusion." Fluid build-up in the lungs can be from congestive heart failure as well as from other causes. Your echocardiogram shows you have a strong heart but you do have something called "diastolic dysfunction." This diastolic dysfunction can predispose some individuals to take on excess water in their bodies. Technically speaking it is a form of congestive heart failure but it can be controlled with medications, watching salt and water intake, etc. During your stay you received IV diuretics (furosemide) to remove as much excess fluid as possible. Your weight at time of discharge is 104.5 pounds. At this time the pulmonary edema is resolved but the pleural effusion on the left remains. Dr Frandy Townsend from [facility] saw you in consult and will perform a procedure called a "thoracentesis" to drain the pleural effusion on the left side with a small needle. It is suspected that the pleural effusion is from your recent heart surgery in [place]. Your shortness of breath should improve nicely once the thoracentesis procedure is complete. In addition we performed an x-ray of your abdomen and this showed a fair amount of constipation. Recommendations - 1. Please continue to HOLD your Eliquis blood thinner medication. Dr Townsend will tell you tomorrow at your appointment when it will be safe to resume it. 2. Furosemide schedule - * take furosemide 20mg by mouth x 1 tomorrow morning, 11/27/21, upon awakening * do not take any furosemide on 11/28/21; Dr Quinones will see you that day and let you know how to take the furosemide moving forward * do not take any furosemide TODAY at home either 3. Potassium supplement - * take 20meq TOMORROW, 11/27/21, with your morning furosemide * then please skip the potassium on 11/28/21 4. For constipation - * take miralax once again tonight * then on subsequent days take once or twice a day depending on the frequency of your bowel movements (shooting for 1-2 soft bowel movements each day) * you may want to consider taking dulcolax or senokot today as well to help jumpstart the bowels 5. Continue to check your weights each day on the same scale every morning. Write these down in a notebook for Dr Quinones. 6. Limit total fluid intake to about 1500cc/day and salt to about 2grams/day. Follow-up - see separate section Return to [facility] if - * you have fevers over 100 degrees * you have chest pains over the center of your chest * your shortness of breath worsens further * you have redness or drainage from the incision on your breastbone * any other concerns It was our pleasure to care for you at [facility]! Continue to feel better, Dr Markham Addtl Oil And Gas Specialist Provider Instructions: Call 911 and go to the Emergency Room if: * You have tightness or pain in your chest that does not go away with rest or Nitroglycerin * You are very short of breath even with rest Call your doctor if any of the following symptoms or problems start or get worse: * Shortness of breath or difficulty breathing * Wake up at night short of breath * Chest pain * Cough * Swelling of your hands, fee, or legs * More fatigued or tired with your normal activity * Palpitations - sudden fast heart beats WEIGHT * Weigh yourself every morning after using the bathroom. * Use the same scale. * Wear the same amount of clothing. * Write your weight down on your chart. * Call your doctor if you gain more than 2-3 pounds in 1-2 days. MEDICATIONS * Use this discharge instruction sheet for instructions. * Take your medications at the time your doctor ordered. * Do not skip a dose of your medicines. * If you miss a dose of medicine, take as soon as possible, but DO NOT DOUBLE A DOSE. * Read your medicine information when you get home. * Know all of the side effects of your medicine. * Call your doctor's office if you have any side effects. * Be sure all of your doctors know what medicine and herbs you take (including cold, flu, and herbal medicine). * Pain Medicine: If you do not get relief from your pain, please call your doctor for help. Take the following with you to your follow-up doctor appointments: * Weight Chart * Medication List * List of questions Do not drink excessive alcohol, beer or wine. Pending Studies at Discharge: No Stand-Alone Forms: My [facility] [employer], Smoking Cessation Medications and DC Order Prescriptions: New furosemide [Lasix] 20 mg tablet 20 mg PO DAILY PRN (Reason: edema/fluid weight gain) Qty: 30 0RF potassium chloride 20 mEq tablet extended release 20 meq PO DAILY PRN (Reason: for when you take furosemide water pill) Qty: 30 0RF Continued pantoprazole 20 mg tablet,delayed release (DR/EC) 20 mg PO DAILY aspirin 81 mg Tablet,Chewable 81 mg PO DAILY calcium-vitamin D3-vitamin K 500-100-40 mg-unit-mcg Tablet,Chewable 1 tab PO DAILY Centrum Silver Women 8 mg iron-400 mcg-300 mcg Tablet 1 tab PO DAILY Metamucil 3.4 gram/5.4 gram Powder 0.5 tbsp PO [id number] Rx Instructions: mix into at least 8 oz of water or juice before administering Airborne Gummy 250-11.66 mg Tablet,Chewable 1 tab PO DAILY Changed polyethylene glycol 3350 [Miralax] 17 gram Powder In Packet 17 g PO DAILY Qty: 30 0RF Rx Instructions: Takes 2 tsp daily Discontinued Eliquis 5 mg tablet 5 mg PO BID No Action Eliquis 5 mg Tablet 5 mg PO BID Discharge Orders: Discharge Order (Routine); Ordered 11/26/21 Ordered By: Scott Bonner/Other Patient Handouts: ED Pleural Effusion Admission Data Admit Date/Time: 11/24/21 20:44 Attending Provider: Scott Markham Admit Provider: Felipa Gonzales Primary Care Provider: Cristiana Morrison Other Providers: Carlos Dumont Other Interventions: Discharge Summary Assessment (RN) Last Done: 11/26/21 12:18 Coding Diagnoses Acute diastolic CHF (congestive heart failure) I50.31 Pleural effusion J90 Elevated troponin R77.8 Abdominal fullness R19.8 DVT prophylaxis Z29.9 Atrial fibrillation I48.91 S/P Maze operation for atrial fibrillation Z98.890; Z86.79 S/P mitral valve repair Z98.890
== END 2021-11-26 12:45 | disposition home or self-care (01) | DRG 291 ==
LOC: ED 16:59 → 2S 20:44 → SUATTDRO 20:44 → 2S 23:59